=== PATIENT | female | born 1995 | race Caucasian/White ===

== ENCOUNTER 2024-10-01 05:51 | Day surgery (SDC) | payer OTHER ==
[2024-09-27 11:44] VITALS: BMI 25.2
[2024-10-01] MEDS ORDERED: SODIUM CHLORIDE 0.9% 1,000 ML IV SCH (05:59)
[2024-10-01 06:43] VITALS: BP 125/90; PULSE 79; RESP 16; TEMP 98.1
[2024-10-01] MEDS: SODIUM CHLORIDE 0.9% 500 ML 500 ML IV ONE (08:36)
--- NOTE | 2024-10-01 11:18 | P.EPPROC ---
- EP Procedure Note Electrophysiology Procedure Note: Diagnosis Recurrent presyncope 12 EKG shows sinus rhythm normal CA narrow QRS normal ST segments with early repolarization abnormality, normal variant in this 29-year-old female Baseline blood pressure in the supine position 113/80 mmHg, baseline heart rate 75 beats a minute Patient was tilted upright in angle of 70 degrees per protocol Mild increase in heart rate briefly and then heart rate settled into the 80s Blood pressure remained normal There is no evidence for neurocardiogenic syncope No other symptoms noted Impression Normal twelve-lead EKG Normal heart rate and blood pressure response to upright tilting
== END 2024-10-01 08:52 | disposition home or self-care (01) ==
LOC: CATHEP 05:51
PROVIDERS: ATTEND Internal Medicine Clinical Cardiac Electrophysiology
DX: R55 Syncope and collapse (principal); G43.709 Chronic migraine without aura, not intractable, without status migrainosus; R00.0 Tachycardia, unspecified
CPT/HCPCS: 81025; 93660